=== PATIENT | male | born 2000 | race Caucasian/White ===

== ENCOUNTER 2023-08-18 19:25 | Emergency (ER) | payer SELFPAY ==
[~2023-08-18] VITALS: Ht 182.9 cm; Wt 95.0 kg
[2023-08-18 19:40] VITALS: BP 124/70; PULSE 98; RESP 18; TEMP 97.6; O2SAT 100
[2023-08-18] MEDS ORDERED: ONDANSETRON 4MG ODT PO ONE (20:45)
[2023-08-18] MEDS ORDERED: ONDANSETRON 4MG ODT PO NR (22:45)
== END 2023-08-18 23:57 | disposition home or self-care (01) ==
LOC: ER 19:25
DX: T40.711A Poisoning by cannabis, accidental (unintentional), initial encounter (principal); Y92.89 Other specified places as the place of occurrence of the external cause
CPT/HCPCS: 99283; Q0162